=== PATIENT | female | born 1960 | race Caucasian/White ===

== ENCOUNTER 2019-03-07 09:51 | Emergency (ER) | payer BC ==
[2019-03-07] MEDS ORDERED: IBUPROFEN 800 MG TABLET PO ONE (10:30)
--- NOTE | 2019-03-07 10:33 | ER Document Report ---
ED Extremity Problem, Upper - General Chief Complaint: Shoulder Pain Stated Complaint: RIGHT SHOULDER PAIN Time Seen by Provider: 03/07/19 10:27 Primary Care Provider: [facility] [Provider Group] - Follow up as needed MIKE BOYER MD [ACTIVE PROVISIONAL STAFF] - Follow up as needed ROMAN MCCALL JR, DO [ACTIVE PROVISIONAL STAFF] - Follow up as needed Mode of Arrival: Ambulatory Information source: Patient Notes: 58-year-old female sent to ED for complaint of chronic pain to her right shoulder neck down to her fingers. She states she is now getting some numbness in her fingers. She states the pain started several weeks ago but is progressively gotten worse. She states is now in her shoulder blade up into her neck and down her arm. She states she does not know any specific injury that she has done to this area. We have discussed getting x-rays given muscle relaxers and ibuprofen and if I do not find anything on x-ray she knows she will need to follow-up with orthopedics. - HPI Patient complains to provider of: Right, Shoulder Onset: Other - About 4 weeks Recent injury: No Where: Home Quality of pain: Achy Severity of pain: Moderate Pain Level: 4 Context: Other - She states she just recently moved Exacerbated by: Movement, Exertion Relieved by: Rest, Positioning Similar symptoms previously: Yes Recently seen / treated by doctor: No - Related Data Allergies/Adverse Reactions: No Known Allergies Allergy (Verified 09/22/13 10:41) Past Medical History - General Information source: Patient - Social History Smoking Status: Current Every Day Smoker Cigarette use (# per day): Yes - Pack a day Smoking Education Provided: Yes - 4 minutes Frequency of alcohol use: Rare Drug Abuse: None 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 Lives with: Spouse/Significant other Family History: Reviewed & Not Pertinent Patient has suicidal ideation: No Patient has homicidal ideation: No - Past Medical History Cardiac Medical History: Reports: None Pulmonary Medical History: Reports: Hx Asthma EENT Medical History: Reports: None Neurological Medical History: Reports: None Endocrine Medical History: Reports: Hx Diabetes Mellitus Type 2 Renal/ Medical History: Reports: None Traumatic Medical History: Reports: Hx Fractures - Right ankle Past Surgical History: Reports: Hx Breast Surgery - Lumpectomy right benign, Hx Section, Hx Gynecologic Surgery - Myomectomy, Hx Hysterectomy, Hx Orthopedic Surgery - Right ankle, Other - Mass removed from pelvic area Review of Systems - Review of Systems Constitutional: No symptoms reported EENT: No symptoms reported Cardiovascular: No symptoms reported Respiratory: No symptoms reported Gastrointestinal: No symptoms reported Genitourinary: No symptoms reported Female Genitourinary: No symptoms reported Musculoskeletal: Joint pain, Muscle pain, Muscle stiffness, Neck pain Skin: No symptoms reported Hematologic/Lymphatic: No symptoms reported Neurological/Psychological: No symptoms reported -: Yes All other systems reviewed and negative Physical Exam - Vital signs Vitals: Temp Pulse Resp BP Pulse Ox 98.5 F 88 16 158/89 H 96 03/07/19 10:00 03/07/19 10:00 03/07/19 10:00 03/07/19 10:00 03/07/19 10:00 Interpretation: Normal - General General appearance: Appears well, Alert - HEENT Head: Normocephalic, Atraumatic Eyes: Normal Pupils: PERRL Ears: Normal External canal: Normal Tympanic membrane: Normal Sinus: Normal Nasal: Normal Mouth/Lips: Normal Pharynx: Normal Neck: Normal - Respiratory Respiratory status: No respiratory distress Chest status: Nontender Breath sounds: Normal Chest palpation: Normal - Cardiovascular Rhythm: Regular Heart sounds: Normal auscultation Murmur: No - Abdominal Inspection: Normal Distension: No distension Bowel sounds: Normal Tenderness: Nontender Organomegaly: No organomegaly - Back Back: Normal, Nontender - Extremities General upper extremity: Normal inspection, Normal color, Normal ROM, Normal temperature General lower extremity: Normal inspection, Nontender, Normal color, Normal ROM, Normal temperature, Normal weight bearing. No: Francisco's sign Shoulder: Tender, Other - With range of motion numbness and tingling shoulder elbow and hand. No: Limited ROM - Neurological Neuro grossly intact: Yes Cognition: Normal Orientation: AAOx4 Adrian Coma Scale Eye Opening: Spontaneous Adrian Coma Scale Verbal: Oriented Adrian Coma Scale Motor: Obeys Commands Adrian Coma Scale Total: 15 Speech: Normal Motor strength normal: LUE, RUE, LLE, RLE Sensory: Normal - Psychological Associated symptoms: Normal affect, Normal mood - Skin Skin Temperature: Warm Skin Moisture: Dry Skin Color: Normal Course - Re-evaluation Re-evalutation: 03/07/19 22:24 X-rays of cervical spine and shoulder are both discussed with patient and wri jose antonio report of x-rays given to patient to follow-up with primary care and orthopedics. Patient does have degenerative disc disease in cervical spine with foraminal encroachment moderate C-spine. Patient was instructed that it is important that she does follow-up with orthopedics. Patient verbalized understanding and agreement with treatment plan and patient was discharged home. - Vital Signs Vital signs: Temp Pulse Resp BP Pulse Ox 98 F 71 16 134/91 H 98 03/07/19 11:49 03/07/19 11:49 03/07/19 11:49 03/07/19 11:49 03/07/19 11:49 - Diagnostic Test Radiology reviewed: Image reviewed - 6, Reports reviewed Discharge - Discharge Clinical Impression: Neck pain Right shoulder pain Qualifiers: Chronicity: acute Qualified Code(s): M25.511 - Pain in right shoulder Condition: Stable Disposition: HOME, SELF-CARE Additional Instructions: You have stated you have increasing pain to her neck and right shoulder and down her arm and hand with numbness to her fingers. X-rays to the neck and shoulder are negative for any acute changes. Acetaminophen Acetaminophen may be taken for pain relief or fever control. It's much safer than aspirin, offering a wider range of "safe" dosages. It is safe during . Some brand names are Tylenol, Panadol, Datril, Anacin 3, Tempra, and Liquiprin. Acetaminophen can be repeated every four hours. The following are maximum recommended dosages: WEIGHT Dose Drops Elixir Chewable(80mg) (LBS.) drprs=droppers tsp=teaspoon 6 40 mg .4 ml (1/2) 6-11 80 mg .8 ml (full) 1/2 tsp 1 tab 12-16 120 mg 1 1/2 drprs 3/4 tsp 1 1/2 tabs 17-23 160 mg 2 drprs 1 tsp 2 tabs 24-30 240 mg 3 drprs 1 1/2 tsp 3 tabs 30-35 320 mg 2 tsp 4 tabs 36-41 360 mg 2 1/4 tsp 4 1/2 tabs 42-47 400 mg 2 1/2 tsp 5 tabs 48-53 480 mg 3 tsp 6 tabs 54-59 520 mg 3 1/4 tsp 6 1/2 tabs 60-64 560 mg 3 1/2 tsp 7 tabs 65-70 600 mg 3 3/4 tsp 7 1/2 tabs 71-76 640 mg 4 tsp 8 tabs 77-82 720 mg 4 1/2 tsp 9 tabs 83-88 800 mg 5 tsp 10 tabs >89 pounds or adults 650 mg to 900 mg Acetaminophen can be repeated every four hours. Maximum daily dose not to exceed 4000 mg. These maximum recommended dosages are slightly higher than the dosages written on the product container, but these dosages are very safe and well below the toxic dosage for acetaminophen. Ibuprofen Ibuprofen is an excellent, safe drug for pain control. In addition, it has potent antiinflammatory effects which are beneficial, especially in the treatment of injuries, arthritis, or tendonitis. It's best to take ibuprofen with food. Persons with ulcer disease or allergy to aspirin should notify their physician of this before taking ibuprofen. Take the medication exactly as prescribed. Don't take additional doses unless instructed to do so by your doctor. If you develop wheezing, shortness of breath, hives, faintness, stomach pain, vomiting, or dark black stools, return for re-evaluation at once. Muscle Relaxers Muscle relaxing medications are usually prescribed for acute muscle spasm or injury to the neck and back. They are often combined with antiinflammatory pain medication for increased relief. You may stop the muscle relaxer when the pain and stiffness have improved. Start the medication again if spasms recur. Muscle relaxers may cause drowsiness, especially with the first dose. Do not operate machinery or drive while under the effects of the medication. Most muscle relaxers last up to 24 hours. Do not combine the medication with alcohol. Ice Packs Apply ice packs frequently against the painful area. Many different schedules are recommended, such as "20 minutes on, 20 minutes off" or "one hour ice, two hours rest." If you need to work, you may need to go longer between ice treatments. You should plan to have the area ice packed AT LEAST one fourth of the time. The ice should be applied over the wrap, tape, or splint, or over a layer of cloth -- not directly against the skin. Some ice bags have a built-in cloth and can be put directly on the skin. FOLLOW-UP CARE: If you have been referred to a physician for follow-up care, call the physicians office for an appointment as you were instructed or within the next two days. If you experience worsening or a significant change in your symptoms, notify the physician immediately or return to the Emergency Department at any time for re-evaluation. Prescriptions: Cyclobenzaprine HCl [Flexeril 10 mg Tablet] 10 mg PO TIDP PRN #15 tab PRN Reason: Forms: Elevated Blood Pressure, Smoking Cessation Education, Return to Work Referrals: ROMAN MCCALL JR, DO [ACTIVE PROVISIONAL STAFF] - Follow up as needed MIKE BOYER MD [ACTIVE PROVISIONAL STAFF] - Follow up as needed [facility] [Provider Group] - Follow up as needed
--- NOTE | 2019-03-07 11:28 | RADIOLOGY REPORT (SQ) ---
EXAM DESCRIPTION: SHOULDER RIGHT 2 OR MORE VIEWS; CERV SP 4 OR 5 VIEWS COMPLETED DATE/TIME: 03/07/2019 11:02 am REASON FOR STUDY: pain numbness COMPARISON: None. FINDINGS: Five view cervical spine: No fracture or posttraumatic malalignment. Mild straightening. Marked C5-6 disc disease. Up to moderate foraminal encroachment at the 5 - 6 level bilaterally. L jaylon apices are clear. Three views right shoulder: No acute or suspicious bone, joint or soft tissue abnormality. TECHNICAL DOCUMENTATION: JOB ID: [id number] Reading location - IP/workstation name: [email or web address]
--- NOTE | 2019-03-07 11:28 | RADIOLOGY REPORT (SQ) ---
EXAM DESCRIPTION: SHOULDER RIGHT 2 OR MORE VIEWS; CERV SP 4 OR 5 VIEWS COMPLETED DATE/TIME: 03/07/2019 11:02 am REASON FOR STUDY: pain numbness COMPARISON: None. FINDINGS: Five view cervical spine: No fracture or posttraumatic malalignment. Mild straightening. Marked C5-6 disc disease. Up to moderate foraminal encroachment at the 5 - 6 level bilaterally. L jaylon apices are clear. Three views right shoulder: No acute or suspicious bone, joint or soft tissue abnormality. TECHNICAL DOCUMENTATION: JOB ID: [id number] Reading location - IP/workstation name: [email or web address]
[2019-03-07 11:50] VITALS: BP 134/91
== END 2019-03-07 11:49 | disposition home or self-care (01) ==
LOC: ER 09:51
DX: M25.511 Pain in right shoulder (principal); M54.2 Cervicalgia; F17.210 Nicotine dependence, cigarettes, uncomplicated; E11.9 Type 2 diabetes mellitus without complications; Z90.710 Acquired absence of both cervix and uterus
CPT/HCPCS: 72050

== ENCOUNTER → 2019-04-15 | Outpatient (CLI) | payer BC ==
--- NOTE | 2019-04-19 10:53 | WOMENS IMAGING REPORT ---
EXAM DESCRIPTION: 3D DX MAMMO BILAT COMPLETED DATE/TIME: 04/15/2019 10:49 am REASON FOR STUDY: R92.8 OTHER ABNORMAL AND INCONCLUSIVE FINDINGS ON DIAGNOSTIC IMAGING OF JAIME R92.8 OTH ABN AND INCONCLUSIVE FINDINGS ON DX IMAGING OF JAIME COMPARISON: Mammograms 12/21/2018 EXAM PARAMETERS: Standard craniocaudal and mediolateral oblique views of each breast recorded using digital acquisition and breast tomosynthesis. Additional left breast 90 mediolateral view Read with the assistance of CAD: .[facility] [employer] Version 9.2 LIMITATIONS: None. FINDINGS: RIGHT BREAST MASSES: No suspicious masses. CALCIFICATIONS: No new or suspicious calcifications. ARCHITECTURAL DISTORTION: None. ASYMMETRY: None noted. OTHER: No other significant findings. LEFT BREAST MASSES: No suspicious masses. CALCIFICATIONS: No new or suspicious calcifications. ARCHITECTURAL DISTORTION: None. ASYMMETRY: None noted. OTHER: No other significant finding. IMPRESSION: Please continue yearly bilateral screening mammography/ tomosynthesis in April 2020 BREAST DENSITY: c. The breasts are heterogeneously dense, which may obscure small masses. BIRAD: ASSESSMENT: 1 Negative. RECOMMENDATION: RECOMMENDED FOLLOW UP: Please continue yearly bilateral screening mammography/ tomos ynthesis in April 2020 SPECIFIC INTERVENTION/IMAGING/CONSULTATION RECOMMENDED:No additional intervention/ imaging/consultati on needed at this time. COMMUNICATION:The negative/benign results were communicated to the patient. COMMENT: The patient has been notified of the results by letter per MQSA requirements. Additional no tification policies are in place for contacting patient with suspicious or incomplete findings. Quality ID #[id number]: The [employer] recommends an annual screening mammogram for women aged 40 years or over. This facility utilizes a reminder system to ensure that all patients receive reminder letters, and/or direct phone calls for appointments. This includes reminders for routine scr eening mammograms, diagnostic mammograms, or other Breast Imaging Interventions when appropriate. Th is patient will be placed in the appropriate reminder system. TECHNICAL DOCUMENTATION: FINDING NUMBER: (1) ASSESSMENT: (1) JOB ID: [id number] 2010 [employer]- All Rights Reserved Reading location - IP/workstation name: [email or web address]
== END ==
LOC: WI 08:15
PROVIDERS: ATTEND Radiology Radiation Oncology
DX: R92.8 Other abnormal and inconclusive findings on diagnostic imaging of breast (principal)
CPT/HCPCS: 77066; G0279; 77062